=== PATIENT | male | born 1955 | race Caucasian/White ===

== ENCOUNTER 2019-05-26 10:51 | Inpatient (IN) | payer OTHER ==
--- NOTE | 2019-05-26 11:04 | ED ---
Psychiatric Complaint - HPI Summary HPI Summary: Patient is a 64 y/o M presenting to the ED via EMS on a 941 for a psychiatric complaint. Per EMS, patient has been noted to have decreasing mental status recently and hit his head on a cabinet on 05/26/19. Patient has a laceration on the left forehead and left side of the head. He is unable to state his symptoms and is confused. Any aggravating or alleviating factors are denied. PMHx is significant for schizophrenia. Patient states he self-medicates for his schizophrenia. Last tetanus vaccination is unknown. Medications reviewed. Allergies noted. LIMITED DUE TO ALTERED MENTAL STATUS. - History Of Current Complaint Time Seen by Provider: 05/26/19 10:57 Hx Obtained From: Patient, EMS Hx From Patient Unobtainable Due To: Altered Mental Status Onset/Duration: Sudden Onset, Still Present Timing: Constant Severity Initially: Moderate Severity Currently: Moderate Aggravating Factor(s): Nothing Alleviating Factor(s): Nothing Associated Signs And Symptoms: Positive: Confused Related History: Positive For: Prior Psychiatric Issues - Allergies/Home Medications Allergies/Adverse Reactions: Allergies Allergy/AdvReac Type Severity Reaction Status Date / Time No Known Allergies Allergy Verified 03/07/12 08:32 Home Medications: Home Medications Acetaminophen [Acetaminophen Extra Strength] 500 mg PO Q6H PRN 05/26/19 [ History Confirmed 05/26/19] Ketoconazole 2 % CREAM (NF) [Nizoral 2% CREAM (NF)] 1 applic TOPICAL BEDTIME [History Confirmed 05/26/19] Levothyroxine TAB* [Synthroid TAB*] 75 mcg PO DAILY 05/26/19 [History Confirmed 05/26/19] Perphenazine (NF) 8 mg PO QAM 05/26/19 [History Confirmed 05/26/19] Perphenazine (NF) 32 mg PO BEDTIME 05/26/19 [History Confirmed 05/26/19] Tamsulosin CAP* [Flomax CAP*] 0.4 mg PO DAILY 05/26/19 [History Confirmed ] PMH/Surg Hx/FS Hx/Imm Hx Previously Healthy: No - LIMITED DUE TO ALTERED MENTAL STATUS Sensory History: Denies: Hx Legally Blind, Hx Deafness Opthamlomology History: Denies: Hx Legally Blind EENT History: Denies: Hx Deafness Psychiatric History: Reports: Hx Schizophrenia - Surgical History Surgical History: None Surgery Procedure, Year, and Place: None - Immunization History Date of Tetanus Vaccine: 03/07/12 Infectious Disease History: No - Family History Known Family History: Negative: Seizure Disorder - Social History Occupation: Unemployed Lives: With Family Hx Substance Use: No Substance Use Type: Reports: None Hx Tobacco Use: No Smoking Status (MU): Never Smoked Tobacco Review of Systems - ROS Summary Review of Systems Summary: LIMITED DUE TO ALTERED MENTAL STATUS. Positive: Other - Positive laceration to the left forehead and left side of the head Neurological: Other - Positive confusion All Other Systems Reviewed And Are Negative: No Physical Exam - Summary Physical Exam Summary: Constitutional: Well-developed, Well-nourished, Alert. (-) Distressed Skin: Warm, Dry. 2 cm laceration to the left scalp. HENT: Normocephalic; Atraumatic Eyes: Conjunctiva normal Neck: Musculoskeletal ROM normal neck. (-) JVD, (-) Stridor, (-) Tracheal deviation Cardio: Rhythm regular, rate normal, Heart sounds normal; Intact distal pulses; Radial pulses are 2+ and symmetric. (-) Murmur Pulmonary/Chest wall: Effort normal. (-) Respiratory distress, (-) Wheezes, (-) Rales Abd: Soft, (-) tenderness, (-) Distension, (-) Guarding, (-) Rebound Musculoskeletal: (-) Edema Lymph: (-) Cervical adenopathy Neuro: Alert, Oriented x3 Psych: Mood and affect Normal LIMITED DUE TO ALTERED MENTAL STATUS. Triage Information Reviewed: Yes Vital Signs Reviewed: Yes - [place] Coma Scale Best Eye Response: 4 - Spontaneous Best Motor Response: 6 - Obeys Commands Best Verbal Response: 5 - Oriented Coma Scale Total: 15 Procedures - Sedation Patient Received Moderate/Deep Sedation with Procedure: No - Laceration/Wound Repair 1 Location: head - 2 cm laceration to the left scalp Description: Linear Length, Depth and Shape: 2 cm laceration to the left scalp Laceration/Wound Explored: clean Closure: Mariza #__ - 4 Diagnostics - Laboratory Result Diagrams: 05/26/19 11:14 05/26/19 15:30 Lab Statement: Any lab studies that have been ordered have been reviewed, and results considered in the medical decision making process. - CT Brain CT CT Interpretation Completed By: Radiologist Summary of CT Findings: Brain CT IMPRESSION: 1. No acute intracranial abnormality. 2. There are mariza along the vertex of the scalp. The subjacent calvarium is intact. Reviewed by Dr. Valladares. Course/Dx - Course Course Of Treatment: Patient is here with altered mental status per his usp. Patient is able answer some questions but does appear to sterile offat times with no acknowledgment of myself. Patient denies any auditory hallucinations. Patient had a small laceration on his head which was excessively repaired with mariza. Patient had blood performed which showed a sodium level of 116. Given patient's severe hyponatremia and altered mental status, patient was admitted to the ICU. - Differential Dx/Clinical Impression Provider Diagnosis: Schizophrenia, Hyponatremia, Scalp laceration, AMS (altered mental status) - Physician Notifications Discussed Care Of Patient With: Sagar Curiel - At 12:27, Dr. Sagar Curiel agrees to admit the patient to [facility] [place] [facility] [place] with a diagnosis of AMS, scalp laceration, hyponatremia, and schizophrenia. Time Discussed With Above Provider: 12:27 Instructed by Provider To: Admit As Inpatient - Critical Care Time Critical Care Time: 30-74 min - 35 minutes Discharge ED - Sign-Out/Discharge Documenting (check all that apply): Patient Departure - Admit - Discharge Plan Condition: Stable Disposition: ADMITTED TO [facility] - Billing Disposition and Condition Condition: STABLE Disposition: Admitted to [facility] - Attestation Statements Document Initiated by Dwayne: Yes Documenting Scribe: Keerthi Teixeira Provider For Whom Dwayne is Documenting (Include Credential): Giorgi Vo MD Scribe Attestation: Keerthi Gifford, scribed for Giorgi Vo MD on 05/26/19 at 2133. Scribe Documentation Reviewed: Yes Provider Attestation: The documentation as recorded by the Keerthi mendoza accurately reflects the service I personally performed and the decisions made by Giorgi pizarro MD Status of Scribe Document: Viewed
[2019-05-26 11:24] LABS: ABS Eosinophils 0.1 10^3/ul (0-0.6); ABS Lymphocytes 0.8 10^3/ul (1.0-4.8); ABS Monocytes 0.6 10^3/ul (0-0.8); ABS Neutrophils 3.1 10^3/ul (1.5-7.7); Eosinophil % 1.9 %; Hematocrit 33 % (42-52); Hemoglobin 11.4 g/dL (14.0-18.0); Lymphocyte % 16.9 %; Mean Corpuscular HGB Conc 35 g/dL (31-36); Mean Corpuscular Hemoglobin 32 pg (27-31); Mean Corpuscular Volume 91 fL (80-94); Mean Platelet Volume 6.5 fL (7.4-10.4); Platelet Count 193 10^3/uL (150-450); Red Blood Count 3.57 10^6 /uL (4.18-5.48); Red Cell Distribution Width 14 % (10-15); White Blood Count 4.7 10^3/uL (3.5-10.8)
[2019-05-26 11:39] LABS: ALT 34 U/L (7-52); AST 40 U/L (13-39); Albumin 4.1 g/dL (3.2-5.2); Alkaline Phosphatase 80 U/L (34-104); BUN/Creatinine Ratio 6.3 (8-20); Blood Urea Nitrogen 4 mg/dL (6-24); CO2 Carbon Dioxide 29 mmol/L (22-32); Calcium 8.7 mg/dL (8.6-10.3); Chloride 83 mmol/L (101-111); EGFR African American 152.8 (>60); EGFR Non-African American 126.3 (>60); Globulin 2.1 g/dL (2-4); Glucose 88 mg/dL (70-100); Potassium 4.6 mmol/L (3.5-5.0); Total Protein 6.2 g/dL (6.4-8.9)
[2019-05-26 11:51] LABS: Anion Gap 4 mmol/L (2-11); Sodium 116 mmol/L (135-145)
[2019-05-26 11:56] LABS: Urine Appearance Clear; Urine Bilirubin Negative (Negative); Urine Blood Negative (Negative); Urine Color Colorless; Urine Glucose Negative (Negative); Urine Ketones Negative (Negative); Urine Nitrite Negative (Negative); Urine Protein Negative (Negative); Urine Specific Gravity 1.001 (1.010-1.030); Urine Urobilinogen Negative (Negative)
[2019-05-26 12:04] LABS: Acetaminophen < 15 mcg/mL; Alcohol < 10 mg/dL (<10); Salicylate < 2.50 mg/dL (<30)
[2019-05-26 12:28] LABS: Urine Benzodiazepine Screen None Detected (None Detect); Urine Opiates Screen None Detected (None Detect)
[2019-05-26 13:07] LABS: Urine Sodium Concentration < 18 mmol/L
[2019-05-26] MEDS ORDERED: NS 0.9% 1000 ML** 1,000 ML IV SCH (13:15)
[2019-05-26 13:16] LABS: Urine Creatinine Concentration 6.98 mg/dL
[2019-05-26] MEDS ORDERED: Gabapentin CAP(*) 300 MG PO SCH (14:00)
[2019-05-26] MEDS ORDERED: Gabapentin CAP(*) 400 MG PO ONE (15:21)
[2019-05-26 16:01] LABS: BUN/Creatinine Ratio 6.2 (8-20); Calcium 9.4 mg/dL (8.6-10.3); EGFR African American 150.1 (>60); EGFR Non-African American 124.1 (>60); Potassium 4.1 mmol/L (3.5-5.0)
--- NOTE | 2019-05-26 17:51 | PN ---
Progress Note - Progress Note Date of Service: 05/26/19 Note: case discussed with ARCHITECTURAL WOOD MODEL MAKER Heather Ray; H&P reviewed. patient admitted after change in mental status; found to have low Na of 116. He is on perfenazine. Nursing discussion wiht patient and he states he drinks a large amount of water daily. he has diuresed 5Liter of urine on his own in just many hours while here. 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 given rapid rise in Na from 116 to 117, will stop NS. Start d5w 125cc/hr, check bmp q4h can allow to drink some water. want the sodium to correct back to lower 120s agree with plan CC time 40 min Sagar Curiel MD Analytical Technician
[2019-05-26] MEDS ORDERED: D5W 1000 ML BAG* 1,000 ML IV SCH (18:00)
--- NOTE | 2019-05-26 19:28 | HP ---
AMENDED REPORT NOW INCLUDES DESIGNATED COSIGNER HISTORY AND PHYSICAL: DATE OF ADMISSION: 05/26/19 PRIMARY CARE PHYSICIAN: Unknown. ATTENDING PHYSICIAN: Dr. Flakito Curiel.* (DICTATED BY ELIEL BASHIR NP) CHIEF COMPLAINT: Altered mental status, fall. HISTORY OF PRESENT ILLNESS: This is a 64-year-old male with a known medical history of schizophrenia who lives at a snf, who was brought to the emergency room after having altered mental status and falling and hitting his head on a cabinet. He denies loss of consciousness. He has a laceration on the left posterior scalp. He states he feels fine, denies any symptoms. Upon admission, sodium was found to be 116. He denies any recent changes in medications and he takes them all as prescribed. PAST MEDICAL HISTORY: Schizophrenia, urinary retention PAST SURGICAL HISTORY: Unknown. HOME MEDICATIONS: 1. Tamsulosin 0.4 mg p.o. daily. 2. Perphenazine 8 mg p.o. in the morning. 3. Perphenazine 32 mg p.o. at bedtime. 4. Nystatin every morning. 5. Multivitamin 1 tab p.o. daily. 6. Ativan 0.5 mg p.o. in the morning. 7. Ativan 2 mg p.o. at bedtime. 8. Lamotrigine 200 mg p.o. daily. 9. Levothyroxine 75 mcg daily. 10. Ketoconazole cream once daily at bedtime. 11. Gabapentin 800 mg p.o. t.i.d. 12. BuSpar 45 mg p.o. b.i.d. 13. Acetaminophen extra strength 500 mg p.o. q.6 hours p.r.n. ALLERGIES: No known allergies. FAMILY HISTORY: Unknown. SOCIAL HISTORY: The patient denies tobacco, alcohol, or drug use. REVIEW OF SYSTEMS: Constitutional: The patient states he feels well. Denies fevers, chills, fatigue. Neuro: Denies headache, vision changes, weakness, loss of sensation. Cardiovascular: Denies chest pain or shortness of breath. He does endorse bilateral lower extremity edema, which is his baseline. Respiratory: No shortness of breath, dyspnea or cough. GI: No nausea, vomiting, diarrhea, abdominal pain. : The patient does endorse problems voiding and has urinary frequency for which he takes Flomax. Musculoskeletal: The patient denies pain or new swelling. PHYSICAL EXAMINATION GENERAL: The patient is awake, alert, oriented x3. Lying on the stretcher, in no apparent distress. VITAL SIGNS: Heart rate 82-99, blood pressure 137-164, respiratory rate 16-21, temperature 98.6. HEENT: Normocephalic. The patient has a laceration on the left posterior scalp closed with matt. PERRL, 3 mm. NEURO: EOMs intact. Strength 5/5 all extremities, sensation intact to all extremities PULMONARY: Lungs are clear bilaterally, diminished in the bases. CARDIOVASCULAR: S1, S2. Regular rate and rhythm. No obvious murmur. ABDOMEN: Soft, nontender. Bowel sounds normal. MUSCULOSKELETAL: No clubbing, no cyanosis. Does have 2+ pitting edema bilateral lower extremities, which the patient states is his baseline. Edema goes up to mid calf. DIAGNOSTIC STUDIES/LAB DATA: CT brain completed and negative for bleed. Lab work significant for sodium of 116, chloride 83, BUN 4, creatinine of 0.64. AST 40. Urine was negative for opiates, barbiturates, amphetamines, benzodiazepines. IMPRESSION: This is a 64-year-old male with a known medical history of schizophrenia, currently on medications, presents to the emergency room after having altered mental status and falling and hitting his head on a cabinet. He was found to be hyponatremic with a sodium of 116 and slightly elevated blood pressure. ASSESSMENT AND PLAN: 1. Hyponatremia. Acute. Reviewed all medications and none are likely to cause hyponatremia. We will start normal saline at 75 cc per hour and obtain BMP q.4 hours. Goal will be to slowly increase it to the 120s. 2. Altered mental status. Appears to have resolved, unknown etiology at this time. The patient remains nonfocal neurologically. 3. Hypertension. Blood pressure elevated on presentation, but has been trending down. We will continue to monitor and keep systolic blood pressure less than 160. 4. Continue all home medications. 5. Bedside swallow evaluation and start regular diet if passes. 6. Out of bed with assistance. 7. Full code. The patient is admitted to the ICU for frequent BMPs, neuro checks, he is in fair condition. ELIEL BASHIR, BOTTLE DEALER [id number]/CPS #: [id number] Attending Note ---- Agree with above. after discussion with patient, noted he drinks large armound of free water. suspicion for psychogenic polydipsia as etiology of hyponatremia. NS infusion. started to make large amounts of urine and so d5w started later in afternoon. bmp q4h Sagar curiel md [facility]
[2019-05-26] MEDS ORDERED: chlorproMAZINE TAB* 10 MG PO ONE (21:12)
[2019-05-26] MEDS: Miconazole TOPICAL CREAM 2%* 30 GM TOPICAL SCH (21:50)
[2019-05-26] MEDS: Gabapentin CAP(*) 400 MG PO SCH (21:50)
[2019-05-26] MEDS: PERPHENAZINE 8 MG PO SCH (21:50)
[2019-05-26 23:08] LABS: BUN/Creatinine Ratio 7.5 (8-20); Calcium 8.9 mg/dL (8.6-10.3); EGFR Non-African American 119.8 (>60); Potassium 4.5 mmol/L (3.5-5.0)
[2019-05-26] MEDS ORDERED: Acetaminophen TAB* 325 MG PO PRN (23:11)
[2019-05-27] MEDS: D5W 1000 ML BAG* 1,000 ML IV SCH ×2 (00:51→06:15)
[2019-05-27 02:30] LABS: Albumin 4.1 g/dL (3.2-5.2); Albumin/Globulin Ratio 1.7 (1-3); BUN/Creatinine Ratio 7.6 (8-20); EGFR African American 147.5 (>60); EGFR Non-African American 121.9 (>60); Globulin 2.4 g/dL (2-4); Potassium 4.5 mmol/L (3.5-5.0); Total Bilirubin 0.4 mg/dL (0.2-1.0); Total Protein 6.5 g/dL (6.4-8.9)
[2019-05-27] MEDS: Levothyroxine TAB* 75 MCG TAB PO SCH (05:43)
[2019-05-27 06:17] LABS: ABS Eosinophils 0.1 10^3/ul (0-0.6); ABS Lymphocytes 0.9 10^3/ul (1.0-4.8); ABS Monocytes 0.5 10^3/ul (0-0.8); Eosinophil % 2.4 %; Hematocrit 33 % (42-52); Hemoglobin 11.7 g/dL (14.0-18.0); Lymphocyte % 25.6 %; Mean Corpuscular HGB Conc 35 g/dL (31-36); Mean Corpuscular Hemoglobin 32 pg (27-31); Mean Corpuscular Volume 92 fL (80-94); Mean Platelet Volume 6.5 fL (7.4-10.4); Nucleated Red Blood Cells % 0.1; Platelet Count 201 10^3/uL (150-450); Red Blood Count 3.63 10^6 /uL (4.18-5.48); Red Cell Distribution Width 14 % (10-15); White Blood Count 3.4 10^3/uL (3.5-10.8)
[2019-05-27 06:32] LABS: BUN/Creatinine Ratio 6.6 (8-20); Calcium 8.7 mg/dL (8.6-10.3); EGFR African American 161.5 (>60); EGFR Non-African American 133.5 (>60); Potassium 3.9 mmol/L (3.5-5.0)
[2019-05-27] MEDS: Gabapentin CAP(*) 400 MG PO SCH ×3 (08:57→20:09)
[2019-05-27] MEDS: lamoTRIgine TAB(*) 100 MG PO SCH (08:57)
[2019-05-27] MEDS: Multivitamins/Minerals TAB PO SCH (08:57)
[2019-05-27] MEDS: Tamsulosin CAP* 0.4 MG PO SCH (08:57)
--- NOTE | 2019-05-27 11:10 | PN ---
Progress Note - Progress Note Date of Service: 05/27/19
--- NOTE | 2019-05-27 11:30 | PN ---
<Heather Ray - Last Filed: 05/27/19 11:32> Date of Service: 05/27/19 Critical Care Services: Progress Note -- Critical Care 24 hour events/significant events: Na increased from 116 to 127 yesterday evening so IVF was transitioned to D5 @125. He started putting out large amounts of urine, indicating he had consumed quite a bit of PO fluids prior to arrival. He has been ambulating around room and voiding without issue. ROS: negative, patient denies any symptoms. He feels back to baseline. Tele: NSR, no ectopy Vitals: Vital Signs 05/26/19 05/26/19 05/26/19 12:03 12:06 12:33 Temperature Pulse Rate 79 79 79 Respiratory 6 12 10 Rate Blood Pressure 164/101 157/97 (mmHg) O2 Sat by Pulse 97 96 99 Oximetry 05/26/19 05/26/19 05/26/19 13:00 13:04 13:34 Temperature Pulse Rate 84 79 75 Respiratory 22 13 18 Rate Blood Pressure 148/93 164/89 (mmHg) O2 Sat by Pulse 98 97 96 Oximetry 05/26/19 05/26/19 05/26/19 14:00 14:04 14:34 Temperature Pulse Rate 80 77 75 Respiratory 16 15 16 Rate Blood Pressure 158/90 147/85 (mmHg) O2 Sat by Pulse 96 96 96 Oximetry 05/26/19 05/26/19 05/26/19 14:53 15:00 15:01 Temperature 98.5 F 98.6 F Pulse Rate 77 84 81 Respiratory 15 18 16 Rate Blood Pressure 158/90 164/91 (mmHg) O2 Sat by Pulse 96 98 97 Oximetry 05/26/19 05/26/19 05/26/19 15:16 15:30 16:00 Temperature Pulse Rate Respiratory 28 30 17 Rate Blood Pressure 165/83 164/87 (mmHg) O2 Sat by Pulse 98 96 98 Oximetry 05/26/19 05/26/19 05/26/19 16:15 16:31 16:45 Temperature Pulse Rate Respiratory 19 16 19 Rate Blood Pressure 160/88 164/89 148/89 (mmHg) O2 Sat by Pulse 97 96 97 Oximetry 05/26/19 05/26/19 05/26/19 17:00 17:15 17:30 Temperature Pulse Rate Respiratory 39 21 16 Rate Blood Pressure 155/96 137/87 185/103 (mmHg) O2 Sat by Pulse 96 98 Oximetry 05/26/19 05/26/19 05/26/19 17:45 18:00 19:00 Temperature Pulse Rate 75 Respiratory 23 14 11 Rate Blood Pressure 140/85 167/94 147/78 (mmHg) O2 Sat by Pulse 99 96 99 Oximetry 05/26/19 05/26/19 05/26/19 20:00 21:00 22:00 Temperature 99.4 F Pulse Rate 76 71 77 Respiratory 17 16 18 Rate Blood Pressure 138/84 142/81 (mmHg) O2 Sat by Pulse 96 95 96 Oximetry 05/26/19 05/26/19 05/26/19 22:01 22:56 23:00 Temperature Pulse Rate 71 59 Respiratory 10 20 16 Rate Blood Pressure 149/86 146/86 (mmHg) O2 Sat by Pulse 98 96 Oximetry 05/26/19 05/27/19 05/27/19 23:06 00:00 01:00 Temperature 99.9 F Pulse Rate 78 59 62 Respiratory 17 12 15 Rate Blood Pressure 138/81 150/79 (mmHg) O2 Sat by Pulse 96 96 96 Oximetry 05/27/19 05/27/19 05/27/19 02:00 02:13 03:00 Temperature Pulse Rate 70 62 62 Respiratory 21 16 8 Rate Blood Pressure 173/104 142/95 141/78 (mmHg) O2 Sat by Pulse 97 96 94 Oximetry 05/27/19 05/27/19 05/27/19 03:20 04:00 05:00 Temperature 98.6 F 98.6 F Pulse Rate 69 58 Respiratory 19 11 Rate Blood Pressure 135/79 132/80 (mmHg) O2 Sat by Pulse 92 94 Oximetry 05/27/19 05/27/19 05/27/19 06:00 06:25 07:00 Temperature Pulse Rate 65 67 Respiratory 15 15 20 Rate Blood Pressure 143/89 144/88 (mmHg) O2 Sat by Pulse 96 98 Oximetry 05/27/19 05/27/19 05/27/19 07:35 08:00 09:00 Temperature 99.3 F Pulse Rate 66 67 Respiratory 19 16 Rate Blood Pressure 150/92 166/81 (mmHg) O2 Sat by Pulse 97 97 Oximetry I/O 05/26/19 05/27/19 05/27/19 18:59 06:59 18:59 Intake Total 207 2675 540 Output Total 6890 2850 575 Balance -6683 -175 -35 Weight 139 lb 15.896 oz 139 lb 15.896 oz Intake: IV Fluids 207 NS 0.9% 207 IVPB 1905 D5W 1905 Oral 770 540 Output: Urine 6890 2850 575 Other: Estimated Void Large Date of Last Bowel 05/27/2019 Movement Estimated Stool Amount Large # Voids 1 1 O2/Vent: RA Infusions: D5W @ 175 cc/hr Medications: Acetaminophen (Tylenol Tab*) 650 mg PO Q6H PRN PRN Reason: MILD PAIN or TEMP > 100.4 Gabapentin (Neurontin Cap(*)) 800 mg PO TID [facility] Last Admin: 05/27/19 08:57 Dose: 800 mg Dextrose (D5w 1000 Ml Bag*) 1,000 mls @ 175 mls/hr IV PER RATE [facility] Last Admin: 05/27/19 06:15 Dose: 175 mls/hr Lamotrigine (Lamictal Tab(*)) 200 mg PO DAILY [facility] Last Admin: 05/27/19 08:57 Dose: 200 mg Levothyroxine Sodium (Synthroid Tab*) 75 mcg PO DAILY@0600 [facility] Last Admin: 05/27/19 05:43 Dose: 75 mcg Miconazole Nitrate (Monistat 2%*) 1 applic TOPICAL BEDTIME [facility]; Protocol Last Admin: 05/26/19 21:50 Dose: 1 applic Multivitamins/Minerals (Theragran/Minerals Tab*) 1 tab PO DAILY [facility] Last Admin: 05/27/19 08:57 Dose: 1 tab Nystatin (Nystatin Top Powder*) 1 applic TOPICAL QAM [facility] Perphenazine (Perphenazine (Nf)) 8 mg PO QAM [facility]; Protocol Perphenazine (Perphenazine (Nf)) 32 mg PO BEDTIME [facility]; Protocol Last Admin: 05/26/19 21:50 Dose: Not Given Tamsulosin HCl (Flomax Cap*) 0.4 mg PO DAILY [facility] Last Admin: 05/27/19 08:57 Dose: 0.4 mg Physical Exam: Constitutional: awake, alert, oriented x3, no distress, no diaphoresis Head: normocephalic, atraumatic Eyes: no pallor, no icterus ENT: moist mucous membranes Neck: soft, supple, no jvd, no stridor CVS: normal rate, regular, no murmur Chest/Resp: bilateral air entry, no rhales, no wheeze, no rhonchi, no acc muscle use Abdomen/GI: soft, nontender, nondistended, BS+ Ext/Msk: warm, pulses+, BLE pitting edema 2+ Skin: intact, warm Neuro: Moving all extremities, strength 5/5 all extremities, no gross focal deficit Psych: normal affect Labs: Laboratory Results - last 24 hr 05/26/19 05/26/19 05/26/19 11:12 11:12 11:12 WBC RBC Hgb Hct MCV MCH MCHC RDW Plt Count MPV Neut % (Auto) Lymph % (Auto) [place] % (Auto) Eos % (Auto) Baso % (Auto) Absolute Neuts (auto) Absolute Lymphs (auto) Absolute Monos (auto) Absolute Eos (auto) Absolute Basos (auto) Absolute Nucleated RBC Nucleated RBC % Sodium Potassium Chloride Carbon Dioxide Anion Gap BUN Creatinine Est GFR ( Amer) Est GFR (Non-Af Amer) BUN/Creatinine Ratio Glucose Calcium Total Bilirubin AST ALT Alkaline Phosphatase Total Protein Albumin Globulin Albumin/Globulin Ratio Urine Color Colorless Urine Appearance Clear Urine pH 7.0 Ur Specific [place] 1.001 L Urine Protein Negative Urine Ketones Negative Urine Blood Negative Urine Nitrate Negative Urine Bilirubin Negative Urine Urobilinogen Negative Ur Leukocyte Esterase Negative Ur Creatinine Concen 6.98 U Sodium Concentration < 18 Urine Glucose Negative Salicylates Urine Opiates Screen None detected Acetaminophen Ur Barbiturates Screen None detected Ur Phencyclidine Scrn None detected Ur Amphetamines Screen None detected U Benzodiazepines Scrn None detected Urine Cocaine Screen None detected U Cannabinoids Screen None detected Serum Alcohol 05/26/19 05/26/19 05/26/19 11:14 11:14 15:30 WBC 4.7 RBC 3.57 L Hgb 11.4 L Hct 33 L MCV 91 MCH 32 H MCHC 35 RDW 14 Plt Count 193 MPV 6.5 L Neut % (Auto) 67.1 Lymph % (Auto) 16.9 [place] % (Auto) 13.7 Eos % (Auto) 1.9 Baso % (Auto) 0.4 Absolute Neuts (auto) 3.1 Absolute Lymphs (auto) 0.8 L Absolute Monos (auto) 0.6 Absolute Eos (auto) 0.1 Absolute Basos (auto) 0.0 Absolute Nucleated RBC 0.0 Nucleated RBC % 0.0 Sodium 116 L* 127 L D Potassium 4.6 4.1 Chloride 83 L 91 L Carbon Dioxide 29 28 Anion Gap 4 8 BUN 4 L 4 L Creatinine 0.64 L 0.65 L Est GFR ( Amer) 152.8 150.1 Est GFR (Non-Af Amer) 126.3 124.1 BUN/Creatinine Ratio 6.3 L 6.2 L Glucose 88 85 Calcium 8.7 9.4 Total Bilirubin 0.50 AST 40 H ALT 34 Alkaline Phosphatase 80 Total Protein 6.2 L Albumin 4.1 Globulin 2.1 Albumin/Globulin Ratio 2.0 Urine Color Urine Appearance Urine pH Ur Specific [place] Urine Protein Urine Ketones Urine Blood Urine Nitrate Urine Bilirubin Urine Urobilinogen Ur Leukocyte Esterase Ur Creatinine Concen U Sodium Concentration Urine Glucose Salicylates < 2.50 Urine Opiates Screen Acetaminophen < 15 Ur Barbiturates Screen Ur Phencyclidine Scrn Ur Amphetamines Screen U Benzodiazepines Scrn Urine Cocaine Screen U Cannabinoids Screen Serum Alcohol < 10 05/26/19 05/27/19 05/27/19 22:40 02:05 06:12 WBC RBC Hgb Hct MCV MCH MCHC RDW Plt Count MPV Neut % (Auto) Lymph % (Auto) [place] % (Auto) Eos % (Auto) Baso % (Auto) Absolute Neuts (auto) Absolute Lymphs (auto) Absolute Monos (auto) Absolute Eos (auto) Absolute Basos (auto) Absolute Nucleated RBC Nucleated RBC % Sodium 129 L 128 L 128 L Potassium 4.5 4.5 3.9 Chloride 96 L 95 L 94 L Carbon Dioxide 28 26 29 Anion Gap 5 7 5 BUN 5 L 5 L 4 L Creatinine 0.67 0.66 L 0.61 L Est GFR ( Amer) 145.0 147.5 161.5 Est GFR (Non-Af Amer) 119.8 121.9 133.5 BUN/Creatinine Ratio 7.5 L 7.6 L 6.6 L Glucose 109 H 115 H 119 H Calcium 8.9 9.0 8.7 Total Bilirubin 0.40 AST 34 ALT 32 Alkaline Phosphatase 85 Total Protein 6.5 Albumin 4.1 Globulin 2.4 Albumin/Globulin Ratio 1.7 Urine Color Urine Appearance Urine pH Ur Specific [place] Urine Protein Urine Ketones Urine Blood Urine Nitrate Urine Bilirubin Urine Urobilinogen Ur Leukocyte Esterase Ur Creatinine Concen U Sodium Concentration Urine Glucose Salicylates Urine Opiates Screen Acetaminophen Ur Barbiturates Screen Ur Phencyclidine Scrn Ur Amphetamines Screen U Benzodiazepines Scrn Urine Cocaine Screen U Cannabinoids Screen Serum Alcohol 05/27/19 06:12 WBC 3.4 L RBC 3.63 L Hgb 11.7 L Hct 33 L MCV 92 MCH 32 H MCHC 35 RDW 14 Plt Count 201 MPV 6.5 L Neut % (Auto) 57.3 Lymph % (Auto) 25.6 [place] % (Auto) 14.2 Eos % (Auto) 2.4 Baso % (Auto) 0.5 Absolute Neuts (auto) 2.0 Absolute Lymphs (auto) 0.9 L Absolute Monos (auto) 0.5 Absolute Eos (auto) 0.1 Absolute Basos (auto) 0.0 Absolute Nucleated RBC 0.0 Nucleated RBC % 0.1 Sodium Potassium Chloride Carbon Dioxide Anion Gap BUN Creatinine Est GFR ( Amer) Est GFR (Non-Af Amer) BUN/Creatinine Ratio Glucose Calcium Total Bilirubin AST ALT Alkaline Phosphatase Total Protein Albumin Globulin Albumin/Globulin Ratio Urine Color Urine Appearance Urine pH Ur Specific [place] Urine Protein Urine Ketones Urine Blood Urine Nitrate Urine Bilirubin Urine Urobilinogen Ur Leukocyte Esterase Ur Creatinine Concen U Sodium Concentration Urine Glucose Salicylates Urine Opiates Screen Acetaminophen Ur Barbiturates Screen Ur Phencyclidine Scrn Ur Amphetamines Screen U Benzodiazepines Scrn Urine Cocaine Screen U Cannabinoids Screen Serum Alcohol Imaging: CT brain 05/26/19 was negative for abnormality Assessment: 64M with known medical history of schizophrenia and urinary retention, presents on 05/26 after experiencing AMS and a fall in where he hit his head on a cabinet. According to nursing notes, staff noticed at the half-way that he was disoriented and yelling at times. Upon admission to ED, patient was found to be hyponatremic with Na 116. Plan: Neuro- -Delirium prec; avoid BDZ - Continue all psych meds. None of his current medications are likely to cause hyponatremia. - CT brain negative for abnormality on 05/26 CVS- -SBP goal <160 - BP has been within goal Resp- -On room air -lung sounds are clear ID- - Afebrile - WBC WNL GI- -Nutrition: Regular diet -GI prophylaxis Renal- -strict I/O. Patient continues to void moderate amounts. - Is negative 8.7L for 24hrs. Most likely consumed a large amount of free water at home and is now diuresing. - Continue D5W @ 175 - Recheck BMP @ 11am. Will decreased IVF to 100cc/hr if Na is stable. - Na goal > 125 Heme- - Subq heparin for DVT prophylaxis Endo-Replace electrolytes as indicated, BG goal <200 Musculsk- pressure ulcer prophylaxis. OOB as tolerated Wounds- none Nutrition- Regular diet DVT prophylaxis: subq heparin GI prophylaxis: H2 gauri Disposition: Patient requires Critical Care/ICU for frequent sodium monitoring and strict I/Os Patient clinical status: Fair Code Status: Good Total Critical Care time is 30 minutes Vital Signs: Temp Pulse Resp BP SpO2 FiO2 99.3 F 67 26 166/81 97 05/27/19 07:35 05/27/19 09:00 05/27/19 09:00 05/27/19 09:00 05/27/19 09:00 Physical Exam: Gen: HEENT: Lungs: Cardiac: Abdomen: Extremities: Neuro: Fluid Balance (Past 24 Hours): I= O= Net Intake & Output 05/25/19 05/26/19 05/27/19 05/28/19 06:59 06:59 06:59 06:59 Intake Total 2882 540 Output Total 9740 575 Balance -6858 -35 Weight 139 lb 15.896 oz Intake: IV Fluids 207 NS 0.9% 207 IVPB 1905 D5W 1905 Oral 770 540 Output: Urine 9740 575 Other: Estimated Void Large Date of Last Bowel 05/27/2019 Movement Estimated Stool Amount Large # Voids 1 Labs: Laboratory Results - last 24 hr 05/26/19 05/26/19 05/26/19 11:12 11:12 11:12 WBC RBC Hgb Hct MCV MCH MCHC RDW Plt Count MPV Neut % (Auto) Lymph % (Auto) [place] % (Auto) Eos % (Auto) Baso % (Auto) Absolute Neuts (auto) Absolute Lymphs (auto) Absolute Monos (auto) Absolute Eos (auto) Absolute Basos (auto) Absolute Nucleated RBC Nucleated RBC % Sodium Potassium Chloride Carbon Dioxide Anion Gap BUN Creatinine Est GFR ( Amer) Est GFR (Non-Af Amer) BUN/Creatinine Ratio Glucose Calcium Total Bilirubin AST ALT Alkaline Phosphatase Total Protein Albumin Globulin Albumin/Globulin Ratio Urine Color Colorless Urine Appearance Clear Urine pH 7.0 Ur Specific [place] 1.001 L Urine Protein Negative Urine Ketones Negative Urine Blood Negative Urine Nitrate Negative Urine Bilirubin Negative Urine Urobilinogen Negative Ur Leukocyte Esterase Negative Ur Creatinine Concen 6.98 U Sodium Concentration < 18 Urine Glucose Negative Salicylates Urine Opiates Screen None detected Acetaminophen Ur Barbiturates Screen None detected Ur Phencyclidine Scrn None detected Ur Amphetamines Screen None detected U Benzodiazepines Scrn None detected Urine Cocaine Screen None detected U Cannabinoids Screen None detected Serum Alcohol 05/26/19 05/26/19 05/26/19 11:14 11:14 15:30 WBC 4.7 RBC 3.57 L Hgb 11.4 L Hct 33 L MCV 91 MCH 32 H MCHC 35 RDW 14 Plt Count 193 MPV 6.5 L Neut % (Auto) 67.1 Lymph % (Auto) 16.9 [place] % (Auto) 13.7 Eos % (Auto) 1.9 Baso % (Auto) 0.4 Absolute Neuts (auto) 3.1 Absolute Lymphs (auto) 0.8 L Absolute Monos (auto) 0.6 Absolute Eos (auto) 0.1 Absolute Basos (auto) 0.0 Absolute Nucleated RBC 0.0 Nucleated RBC % 0.0 Sodium 116 L* 127 L D Potassium 4.6 4.1 Chloride 83 L 91 L Carbon Dioxide 29 28 Anion Gap 4 8 BUN 4 L 4 L Creatinine 0.64 L 0.65 L Est GFR ( Amer) 152.8 150.1 Est GFR (Non-Af Amer) 126.3 124.1 BUN/Creatinine Ratio 6.3 L 6.2 L Glucose 88 85 Calcium 8.7 9.4 Total Bilirubin 0.50 AST 40 H ALT 34 Alkaline Phosphatase 80 Total Protein 6.2 L Albumin 4.1 Globulin 2.1 Albumin/Globulin Ratio 2.0 Urine Color Urine Appearance Urine pH Ur Specific [place] Urine Protein Urine Ketones Urine Blood Urine Nitrate Urine Bilirubin Urine Urobilinogen Ur Leukocyte Esterase Ur Creatinine Concen U Sodium Concentration Urine Glucose Salicylates < 2.50 Urine Opiates Screen Acetaminophen < 15 Ur Barbiturates Screen Ur Phencyclidine Scrn Ur Amphetamines Screen U Benzodiazepines Scrn Urine Cocaine Screen U Cannabinoids Screen Serum Alcohol < 10 05/26/19 05/27/19 05/27/19 22:40 02:05 06:12 WBC RBC Hgb Hct MCV MCH MCHC RDW Plt Count MPV Neut % (Auto) Lymph % (Auto) [place] % (Auto) Eos % (Auto) Baso % (Auto) Absolute Neuts (auto) Absolute Lymphs (auto) Absolute Monos (auto) Absolute Eos (auto) Absolute Basos (auto) Absolute Nucleated RBC Nucleated RBC % Sodium 129 L 128 L 128 L Potassium 4.5 4.5 3.9 Chloride 96 L 95 L 94 L Carbon Dioxide 28 26 29 Anion Gap 5 7 5 BUN 5 L 5 L 4 L Creatinine 0.67 0.66 L 0.61 L Est GFR ( Amer) 145.0 147.5 161.5 Est GFR (Non-Af Amer) 119.8 121.9 133.5 BUN/Creatinine Ratio 7.5 L 7.6 L 6.6 L Glucose 109 H 115 H 119 H Calcium 8.9 9.0 8.7 Total Bilirubin 0.40 AST 34 ALT 32 Alkaline Phosphatase 85 Total Protein 6.5 Albumin 4.1 Globulin 2.4 Albumin/Globulin Ratio 1.7 Urine Color Urine Appearance Urine pH Ur Specific [place] Urine Protein Urine Ketones Urine Blood Urine Nitrate Urine Bilirubin Urine Urobilinogen Ur Leukocyte Esterase Ur Creatinine Concen U Sodium Concentration Urine Glucose Salicylates Urine Opiates Screen Acetaminophen Ur Barbiturates Screen Ur Phencyclidine Scrn Ur Amphetamines Screen U Benzodiazepines Scrn Urine Cocaine Screen U Cannabinoids Screen Serum Alcohol 05/27/19 06:12 WBC 3.4 L RBC 3.63 L Hgb 11.7 L Hct 33 L MCV 92 MCH 32 H MCHC 35 RDW 14 Plt Count 201 MPV 6.5 L Neut % (Auto) 57.3 Lymph % (Auto) 25.6 [place] % (Auto) 14.2 Eos % (Auto) 2.4 Baso % (Auto) 0.5 Absolute Neuts (auto) 2.0 Absolute Lymphs (auto) 0.9 L Absolute Monos (auto) 0.5 Absolute Eos (auto) 0.1 Absolute Basos (auto) 0.0 Absolute Nucleated RBC 0.0 Nucleated RBC % 0.1 Sodium Potassium Chloride Carbon Dioxide Anion Gap BUN Creatinine Est GFR ( Amer) Est GFR (Non-Af Amer) BUN/Creatinine Ratio Glucose Calcium Total Bilirubin AST ALT Alkaline Phosphatase Total Protein Albumin Globulin Albumin/Globulin Ratio Urine Color Urine Appearance Urine pH Ur Specific [place] Urine Protein Urine Ketones Urine Blood Urine Nitrate Urine Bilirubin Urine Urobilinogen Ur Leukocyte Esterase Ur Creatinine Concen U Sodium Concentration Urine Glucose Salicylates Urine Opiates Screen Acetaminophen Ur Barbiturates Screen Ur Phencyclidine Scrn Ur Amphetamines Screen U Benzodiazepines Scrn Urine Cocaine Screen U Cannabinoids Screen Serum Alcohol Plan: Critical Care Time: <Michelle Curiel - Last Filed: 05/28/19 13:05> Vital Signs: Temp Pulse Resp BP SpO2 FiO2 98.2 F 57 18 128/72 97 05/28/19 08:00 05/28/19 08:00 05/28/19 08:21 05/28/19 08:00 05/28/19 08:00 Physical Exam: Gen: HEENT: Lungs: Cardiac: Abdomen: Extremities: Neuro: Fluid Balance (Past 24 Hours): I= O= Net Intake & Output 05/26/19 05/27/19 05/28/19 05/29/19 06:59 06:59 06:59 06:59 Intake Total 2882 2288 360 Output Total 9740 3715 Balance -8228 -7087 360 Weight 63.5 kg Intake: IV Fluids 207 131 D5W 131 NS 0.9% 207 IVPB 1905 1117 D5W 1905 1117 Oral 770 1040 360 Output: Urine 9740 3715 Other: Estimated Void Large Date of Last Bowel 05/27/2019 Movement # Bowel Movements 0 Estimated Stool Amount Large # Voids 1 Labs: Laboratory Results - last 24 hr 05/27/19 05/28/19 16:46 04:43 Sodium 129 L 132 L Potassium 4.4 4.1 Chloride 93 L 97 L Carbon Dioxide 30 28 Anion Gap 6 7 BUN 9 13 Creatinine 0.69 0.69 Est GFR ( Amer) 140.1 140.1 Est GFR (Non-Af Amer) 115.8 115.8 BUN/Creatinine Ratio 13.0 18.8 Glucose 101 H 93 Calcium 9.4 9.1 TSH 3.36 Plan: Critical Care Time: Attending Note Patient awake, alert. stable neuro exam Na stable in 128-129 range. D5w was decreased now. check repeat BMP/Na later today; urine output has decreased. correction of Na 12 in 24 hours, large due to his large diuresis from all the free water he takes in. d5w to be stopped later today if Na stable and allow himself to correct. will encourage to decrease free water intake. cont antipsychotic medications. michelle curiel md
[2019-05-27 11:49] LABS: BUN/Creatinine Ratio 6.1 (8-20); Calcium 9.3 mg/dL (8.6-10.3); EGFR African American 147.5 (>60); EGFR Non-African American 121.9 (>60); Potassium 4.2 mmol/L (3.5-5.0)
[2019-05-27] MEDS ORDERED: D5W 1000 ML BAG* 1,000 ML IV SCH (11:51)
[2019-05-27] MEDS: PERPHENAZINE 8 MG PO SCH ×2 (11:56→20:10)
[2019-05-27] MEDS: Nystatin TOP POWDER* 15 GM BTL TOPICAL SCH (11:58)
[2019-05-27 17:21] LABS: Calcium 9.4 mg/dL (8.6-10.3); EGFR African American 140.1 (>60); EGFR Non-African American 115.8 (>60); Potassium 4.4 mmol/L (3.5-5.0)
[2019-05-27] MEDS: Miconazole TOPICAL CREAM 2%* 30 GM TOPICAL SCH (20:09)
[2019-05-28] MEDS ORDERED: QUEtiapine TAB* 25 MG PO ONE (00:14)
[2019-05-28] MEDS: Levothyroxine TAB* 75 MCG TAB PO SCH (05:33)
[2019-05-28 05:51] LABS: BUN/Creatinine Ratio 18.8 (8-20); Calcium 9.1 mg/dL (8.6-10.3); EGFR African American 140.1 (>60); EGFR Non-African American 115.8 (>60); Potassium 4.1 mmol/L (3.5-5.0)
[2019-05-28] MEDS: Famotidine TAB* 20 MG PO SCH (08:20)
[2019-05-28] MEDS: Gabapentin CAP(*) 400 MG PO SCH ×3 (08:21→21:02)
[2019-05-28] MEDS: Tamsulosin CAP* 0.4 MG PO SCH (08:21)
[2019-05-28] MEDS: Multivitamins/Minerals TAB PO SCH (08:21)
[2019-05-28] MEDS: lamoTRIgine TAB(*) 100 MG PO SCH (08:22)
[2019-05-28] MEDS: Nystatin TOP POWDER* 15 GM BTL TOPICAL SCH (08:24)
[2019-05-28] MEDS: PERPHENAZINE 8 MG PO SCH ×2 (08:24→21:04)
--- NOTE | 2019-05-28 10:40 | PN ---
Subjective Date of Service: 05/28/19 Interval History: Pt was transferred to overnight. He currently states he is feeling well. He denies any SOB. No pain. Objective Active Medications: Acetaminophen (Tylenol Tab*) 650 mg PO Q6H PRN PRN Reason: MILD PAIN or TEMP > 100.4 Famotidine (Pepcid Tab*) 20 mg PO DAILY [facility] Last Admin: 05/28/19 08:20 Dose: 20 mg Gabapentin (Neurontin Cap(*)) 800 mg PO TID [facility] Last Admin: 05/28/19 08:21 Dose: 800 mg Lamotrigine (Lamictal Tab(*)) 200 mg PO DAILY [facility] Last Admin: 05/28/19 08:22 Dose: 200 mg Levothyroxine Sodium (Synthroid Tab*) 75 mcg PO DAILY@0600 [facility] Last Admin: 05/28/19 05:33 Dose: 75 mcg Miconazole Nitrate (Monistat 2%*) 1 applic TOPICAL BEDTIME [facility]; Protocol Last Admin: 05/27/19 20:09 Dose: 1 applic Multivitamins/Minerals (Theragran/Minerals Tab*) 1 tab PO DAILY [facility] Last Admin: 05/28/19 08:21 Dose: 1 tab Nystatin (Nystatin Top Powder*) 1 applic TOPICAL QAM [facility] Last Admin: 05/28/19 08:24 Dose: Not Given Perphenazine (Perphenazine (Nf)) 8 mg PO QAM [facility]; Protocol Last Admin: 05/28/19 08:24 Dose: Not Given Perphenazine (Perphenazine (Nf)) 32 mg PO BEDTIME [facility]; Protocol Last Admin: 05/27/19 20:10 Dose: Not Given Tamsulosin HCl (Flomax Cap*) 0.4 mg PO DAILY [facility] Last Admin: 05/28/19 08:21 Dose: 0.4 mg Vital Signs - 8 hr 05/28/19 05/28/19 05/28/19 02:45 08:00 08:21 Temperature 98.5 F 98.2 F Pulse Rate 64 57 Respiratory 14 18 18 Rate Blood Pressure 137/80 128/72 (mmHg) O2 Sat by Pulse 96 97 Oximetry Oxygen Devices in Use Now: None Appearance: Middle aged male standing in his room, NAD Eyes: No Scleral Icterus Ears/Nose/Mouth/Throat: Mucous Membranes Moist Cardiovascular: NL Sounds; No Murmurs; No JVD, RRR, No Edema Abdominal: NL Sounds; No Tenderness; No Distention Extremities: No Clubbing, Cyanosis Skin: No Nodules or Sclerosis Neurological: Alert and Oriented x 3 Result Diagrams: 05/27/19 06:12 05/28/19 04:43 Microbiology and Other Data: Microbiology 05/26/19 15:30 Nasal Screen MRSA (PCR) - Final Nasal Mrsa Not Detected Assess/Plan/Problems-Billing Mr Bush is a 64 yo M who has a h/o schizophrenia who presented to the ER with altered mental status and fall and was found to be 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 - Patient Problems (1) Psychogenic polydipsia Current Visit: Yes Status: Acute Code(s): R63.1 - POLYDIPSIA; F54 - PSYCH & [employer] W DISORD OR DIS CLASSD [id number] SNOMED Code(s): 24788424 Comment: Pt with likely psychogenic polydipsia. He was drinking a tremendous amount of water prior to admission. He needs to be limited to 64oz free water/ day. (2) Hyponatremia Current Visit: Yes Status: Acute Code(s): E87.1 - HYPO-OSMOLALITY AND HYPONATREMIA SNOMED Code(s): 12578526 Comment: Resolved with limiting patient's access to as much water as he wants. He did correct rapidly initially but now the Na level is stable. He is ready for d/c home when [facility] can take him back. (3) Schizophrenia Current Visit: Yes Status: Acute Code(s): F20.9 - SCHIZOPHRENIA, UNSPECIFIED SNOMED Code(s): 56789778 Comment: Continue seroquel. Pt has not had his perphenazine since admission. (4) Hypothyroidism Current Visit: Yes Status: Acute Code(s): E03.9 - HYPOTHYROIDISM, UNSPECIFIED SNOMED Code(s): 00270948 Comment: Check TSH. Continue synthroid at current dose. (5) DVT prophylaxis Current Visit: Yes Status: Acute Code(s): Z29.9 - ENCOUNTER FOR PROPHYLACTIC MEASURES, UNSPECIFIED SNOMED Code(s): 968579089 Comment: start lovenox if pt needs to stay the night (6) Full code status Current Visit: Yes Status: Acute Code(s): Z78.9 - OTHER SPECIFIED HEALTH STATUS SNOMED Code(s): 024143462
[2019-05-28 11:39] LABS: TSH (Thyroid Stimulating Horm) 3.36 mcIU/mL (0.34-5.60)
[2019-05-28] MEDS: Miconazole TOPICAL CREAM 2%* 30 GM TOPICAL SCH (21:03)
[2019-05-28] MEDS: QUEtiapine TAB* 25 MG PO PRN (21:04)
[2019-05-29] MEDS: Levothyroxine TAB* 75 MCG TAB PO SCH (05:20)
[2019-05-29 05:58] LABS: BUN/Creatinine Ratio 17.6 (8-20); Calcium 8.7 mg/dL (8.6-10.3); EGFR African American 142.5 (>60); EGFR Non-African American 117.8 (>60); Potassium 4.4 mmol/L (3.5-5.0)
[2019-05-29] MEDS: lamoTRIgine TAB(*) 100 MG PO SCH (07:51)
[2019-05-29] MEDS: Nystatin TOP POWDER* 15 GM BTL TOPICAL SCH (07:52)
[2019-05-29] MEDS: Gabapentin CAP(*) 400 MG PO SCH ×3 (07:52→20:54)
[2019-05-29] MEDS: Multivitamins/Minerals TAB PO SCH (07:52)
[2019-05-29] MEDS: PERPHENAZINE 8 MG PO SCH ×2 (07:52→20:55)
[2019-05-29] MEDS: Famotidine TAB* 20 MG PO SCH (07:52)
[2019-05-29] MEDS: Tamsulosin CAP* 0.4 MG PO SCH (07:52)
--- NOTE | 2019-05-29 16:51 | PN ---
Subjective Date of Service: 05/29/19 Interval History: No overnight events. Librado is concerned he is not getting his medications timed correctly. I will correct the timing. Otherwise he has no complaints. Objective Active Medications: Acetaminophen (Tylenol Tab*) 650 mg PO Q6H PRN PRN Reason: MILD PAIN or TEMP > 100.4 Famotidine (Pepcid Tab*) 20 mg PO DAILY [facility] Last Admin: 05/29/19 07:52 Dose: 20 mg Gabapentin (Neurontin Cap(*)) 800 mg PO TID [facility] Last Admin: 05/29/19 15:43 Dose: 800 mg Lamotrigine (Lamictal Tab(*)) 200 mg PO DAILY [facility] Last Admin: 05/29/19 07:51 Dose: 200 mg Levothyroxine Sodium (Synthroid Tab*) 75 mcg PO DAILY@0600 [facility] Last Admin: 05/29/19 05:20 Dose: 75 mcg Miconazole Nitrate (Monistat 2%*) 1 applic TOPICAL BEDTIME [facility]; Protocol Last Admin: 05/28/19 21:03 Dose: 1 applic Multivitamins/Minerals (Theragran/Minerals Tab*) 1 tab PO DAILY [facility] Last Admin: 05/29/19 07:52 Dose: 1 tab Nystatin (Nystatin Top Powder*) 1 applic TOPICAL QAM [facility] Last Admin: 05/29/19 07:52 Dose: Not Given Perphenazine (Perphenazine (Nf)) 8 mg PO QAM [facility]; Protocol Last Admin: 05/29/19 07:52 Dose: Not Given Perphenazine (Perphenazine (Nf)) 32 mg PO BEDTIME [facility]; Protocol Last Admin: 05/28/19 21:04 Dose: Not Given Quetiapine Fumarate (Seroquel Tab*) 50 mg PO BEDTIME PRN PRN Reason: Sleep Last Admin: 05/28/19 21:04 Dose: 50 mg Tamsulosin HCl (Flomax Cap*) 0.4 mg PO DAILY [facility] Last Admin: 05/29/19 07:52 Dose: 0.4 mg Vital Signs - 8 hr 05/29/19 05/29/19 05/29/19 10:13 11:30 15:43 Temperature 99.2 F Pulse Rate 66 Respiratory 20 21 18 Rate Blood Pressure 127/71 (mmHg) O2 Sat by Pulse 95 Oximetry Oxygen Devices in Use Now: None Appearance: alert, well appearing Eyes: No Scleral Icterus Ears/Nose/Mouth/Throat: NL Teeth, Lips, Gums Neck: NL Appearance and Movements; NL JVP Respiratory: Symmetrical Chest Expansion and Respiratory Effort, Clear to Auscultation Cardiovascular: NL Sounds; No Murmurs; No JVD, RRR Abdominal: NL Sounds; No Tenderness; No Distention Lymphatic: No Cervical Adenopathy Extremities: No Edema, - - varicose veins both legs Skin: No Rash or Ulcers Result Diagrams: 05/27/19 06:12 05/29/19 05:21 Microbiology and Other Data: Microbiology 05/26/19 15:30 Nasal Screen MRSA (PCR) - Final Nasal Mrsa Not Detected Assess/Plan/Problems-Billing Mr Bush is a 64 yo M who has a h/o schizophrenia who presented to the ER with altered mental status and fall and was found to be 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 - Patient Problems (1) Hyponatremia Current Visit: Yes Status: Acute Code(s): E87.1 - HYPO-OSMOLALITY AND HYPONATREMIA SNOMED Code(s): 84236288 Comment: Resolved with limiting patient's access to wtaer. He did correct rapidly initially but now the Na level is stable. Certainly perphenazine can cause hyponatremia, but his sodium has resolved despite the continuation of perphenazine. Although he cannot quantify how much water he was drinking, he says "a lot" and admits it was as much as he could get. Sodium has resolved with only water restriction and no other intervention and with continuation of his antipsychotics so I agree this is most likely (2) Hypothyroidism Current Visit: Yes Status: Acute Code(s): E03.9 - HYPOTHYROIDISM, UNSPECIFIED SNOMED Code(s): 12839750 Comment: TSH normal (3) Psychogenic polydipsia Current Visit: Yes Status: Acute Code(s): R63.1 - POLYDIPSIA; F54 - PS[facility] [facility] W DISORD OR DIS CLASSD [id number] SNOMED Code(s): 20871633 Comment: Pt with likely psychogenic polydipsia. He was drinking a tremendous amount of water prior to admission. He needs to be limited to 64oz free water/ day. (4) Schizophrenia Current Visit: Yes Status: Acute Code(s): F20.9 - SCHIZOPHRENIA, UNSPECIFIED SNOMED Code(s): 32131774 Comment: Continue seroquel and perphenazine Status and Disposition: ready for discharge but [place] did not return Social work's calls today
[2019-05-29] MEDS: QUEtiapine TAB* 25 MG PO PRN (20:54)
[2019-05-29] MEDS: Miconazole TOPICAL CREAM 2%* 30 GM TOPICAL SCH (20:55)
[2019-05-29] MEDS ORDERED: busPIRone TAB* 10 MG PO SCH (21:00)
[2019-05-30] MEDS: Levothyroxine TAB* 75 MCG TAB PO SCH (06:00)
[2019-05-30] MEDS: Famotidine TAB* 20 MG PO SCH (08:19)
[2019-05-30] MEDS: Multivitamins/Minerals TAB PO SCH (08:19)
[2019-05-30] MEDS: lamoTRIgine TAB(*) 100 MG PO SCH (08:19)
[2019-05-30] MEDS: Tamsulosin CAP* 0.4 MG PO SCH (08:19)
[2019-05-30] MEDS: Gabapentin CAP(*) 400 MG PO SCH (08:19)
[2019-05-30] MEDS: PERPHENAZINE 8 MG PO SCH (08:20)
[2019-05-30] MEDS: Nystatin TOP POWDER* 15 GM BTL TOPICAL SCH (08:20)
[2019-05-30] MEDS ORDERED: busPIRone TAB* 15 MG PO SCH (09:00)
--- NOTE | 2019-05-30 10:44 | CONSULT ---
Identification - Patient Identification Reason for Psychiatric Consultation: Incapacitating Symptoms -: Patient is a 64 year old, M admitted on 05/26/19. - MHU Identification Employment Status: Disabled Hx Psychiatric Hospitalization: Yes History - Objective HPI: Psychiatry is asked to see Mr. Bush due to psychogenic polydipsia resulting in dangerously low sodium levels, falls and hospitalization in the ICU for electrolyte correction. He is apparently medically cleared for discharge, however, his housing agency, [facility], asked for psychiatric evaluation as he lives in a room that has free access to water and he cannot be continuously monitored to prevent further polydipsia. Upon entering his room he is calmly laying in bed and is cooperative, albeit oddly related. He seems to anticipate my line of questioning by stating at the beginning "I know, they told me already...only 4 cups of water a day." He admits to drinking "a lot" of water prior to admission, explaining that he has always tried to avoid dehydration. He demonstrates an understanding of the problematic nature of this behavior saying "I could end up back in the hospital or have a seizure." He reports that he receives treatment for his mental illness at [facility] under the care of psychiatrist Siddharth Mcfadden. His next appointment there is in early June. He denies delusions, hallucinations or SI/HI. Exam Appearance: Thin Framed Hygiene: Normal Grooming: Well Kept Psychomotor Activities: Normal Exhibits Abnormal Movement: Yes Attitude and Relatedness: Cooperative Eye Contact: Good - Speech Quality: Unpressured Latencies: Normal Quantity: Terse Patient's Decription of Mood: "Okay" Observed Affect: Unvariable Affect Consistent with: Euthymia Patient's Thought Process: Coherent Thought Content: No Passive Wish, No Suicidal Planning, No Homicidal Ideation, No Paranoid Ideation Experiencing Hallucinations: No, Sensorium is Clear Type of Hallucinations: Visual: No, Auditory: No, Command: No Level of Consciousness: Alert Orientation: Yes Intact, Yes Orientated to Time, Yes Orientated to Place, Yes Orientated to Person Impulse Control: Intact Insight and Judgement: Fair Impression - Impression Clinical Impression: 64 y.o. single, white male with a history of schizophrenia admitted to the Medicine service on 05/26/19 due to falls related to hyponatremia. His sodium has been corrected and the etiology has been determined to be that of psychogenic polydipsia. The patient must limit his fluid intake to 64oz per day and he expresses an understanding of this. Inpatient DSM-V Dx: F20.9 Merits Inpatient Hospitalization: Yes BSU: Problem List - Patient Problems (1) Schizophrenia Current Visit: Yes Status: Acute Priority: Low Code(s): F20.9 - SCHIZOPHRENIA, UNSPECIFIED SNOMED Code(s): 94195189 Comment: Continue seroquel and perphenazine Plan - Treatment Plan Treatment Plan: Continue outpatient meds. The patient is psychiatrically cleared for discharge and will follow up with Dr. Siddharth Mcfadden at [facility]. He expresses clear understanding that he must limit fluid intake to 4 cups of water per day. Psychiatry is signing off but can be reconsulted in the event of any significant changes in the patient's presentation. Continued Medication Management: Continue Outpt Medication Medications: Current Medications Acetaminophen (Tylenol Tab*) 650 mg PO Q6H PRN PRN Reason: MILD PAIN or TEMP > 100.4 Buspirone HCl (Buspar Tab *) 45 mg PO BID [facility] Last Admin: 05/30/19 09:33 Dose: 45 mg Famotidine (Pepcid Tab*) 20 mg PO DAILY [facility] Last Admin: 05/30/19 08:19 Dose: 20 mg Gabapentin (Neurontin Cap(*)) 800 mg PO TID [facility] Last Admin: 05/30/19 08:19 Dose: 800 mg Lamotrigine (Lamictal Tab(*)) 200 mg PO DAILY [facility] Last Admin: 05/30/19 08:19 Dose: 200 mg Levothyroxine Sodium (Synthroid Tab*) 75 mcg PO DAILY@0600 [facility] Last Admin: 05/30/19 06:00 Dose: 75 mcg Miconazole Nitrate (Monistat 2%*) 1 applic TOPICAL BEDTIME [facility]; Protocol Last Admin: 05/29/19 20:55 Dose: 1 applic Multivitamins/Minerals (Theragran/Minerals Tab*) 1 tab PO DAILY [facility] Last Admin: 05/30/19 08:19 Dose: 1 tab Nystatin (Nystatin Top Powder*) 1 applic TOPICAL QAM [facility] Last Admin: 05/30/19 08:20 Dose: 1 applic Perphenazine (Trilafon Tab*) 8 mg PO QAM [facility]; Protocol Perphenazine (Trilafon Tab*) 32 mg PO BEDTIME [facility]; Protocol Quetiapine Fumarate (Seroquel Tab*) 50 mg PO BEDTIME PRN PRN Reason: Sleep Last Admin: 05/29/19 20:54 Dose: 50 mg Tamsulosin HCl (Flomax Cap*) 0.4 mg PO DAILY [facility] Last Admin: 05/30/19 08:19 Dose: 0.4 mg - Discharge Plan Discharge Plan: Outpatient Follow Up Outpatient Program: [facility]
[2019-05-30] MEDS ORDERED: Perphenazine TAB* 2 MG PO SCH ×2 (11:00→21:00)
[2019-05-30 13:02] VITALS: BP 126/64
--- NOTE | 2019-05-30 22:19 | DS ---
CC: Dr. Mcfadden * DISCHARGE SUMMARY: DATE OF ADMISSION: 05/26/19 DATE OF DISCHARGE: 05/30/19 PRINCIPAL DISCHARGE DIAGNOSES: 1. Hyponatremia. 2. Psychogenic polydipsia. 3. Fall. SECONDARY DISCHARGE DIAGNOSIS: 1. Schizophrenia. MEDICATIONS AT DISCHARGE: 1. Lorazepam 2 mg q.h.s. 2. Multivitamin daily. 3. Lamotrigine 200 mg daily. 4. Nystatin topically daily. 5. Lorazepam 0.5 mg daily. 6. Gabapentin 800 mg t.i.d. 7. Buspirone 45 mg b.i.d. 8. Tamsulosin 0.4 mg daily. 9. Perphenazine 8 mg daily. 10. Perphenazine 32 mg q.h.s. 11. Synthroid 75 mcg daily. 12. Tylenol 500 mg q.6 hours p.r.n. pain. PHYSICAL EXAMINATION: At the time of discharge, temperature 98.8, heart rate 64, respiratory rate 14, pulse ox 95% on room air, blood pressure 126/64. General: Alert, well-appearing man, elderly man, doing stretches in his room. HEENT: Pupils are equal, round, reactive to light. Oral mucosa is moist. Neck : No JVP, no adenopathy. Chest: Regular rate and rhythm with no murmurs. His lungs are clear bilaterally. Abdomen: Soft, nontender, nondistended. Extremities: No edema, rashes, or ulcers. He has significant varicosities on his lower extremities, right greater than left. Psychiatric: He is calm, appropriate, and expresses clear understanding of our conversation. HOSPITAL COURSE BY PROBLEM: 1. Hyponatremia. Mr. Bush was admitted after confusion and a fall, and at the time of admission, he was found to have serum sodium of 116. He was admitted to the ICU for sodium correction, which was done with normal saline and water restriction. Mr. Bush admitted to drinking large amounts of water and while he could not quantify it, he said he drank "as much water as I could get the hands on." This history was supported by staff members at [place], who said that he has his own apartment and does not socialize as much and has free access to as much water as he pleases. He also had large volume auto-diuresis while in the ICU further supporting the suspicion of psychogenic polydipsia. It should be noted that he is also on perphenazine, which can cause hyponatremia and this was held during this admission due to being not on formulary. However, since his sodium corrected so quickly with water restriction as well as large volume auto-diuresis and his history of consuming large volumes of water, his history was more likely to be consistent with psychogenic polydipsia. Dr. Westbrook also weighed in and agreed that it was less likely to be caused by perphenazine, so this is being continued at the time of discharge. 2. Fall. This was likely related to the hyponatremia. He was able to ambulate easily around his room and in the hallways with the nurses and they expressed no concern about his safety to return back to [place]. 3. Schizophrenia. He was continued on his home medication save for perphenazine since we did not have it on formulary, he is being discharged on the same medication without any changes. 4. Hypothyroidism. His TSH was within normal limits on this admission. DISPOSITION: Mr. Bush is being discharged back to [place]. He expresses good understanding of the need for water restriction and agrees to comply with this and understands the consequences of not doing so. We discussed the case with [facility] to see whether they could turn off his personal thing, so that he would have monitored water intake, but they do not have the ability to do so. Along with Psychiatry in [place], we decided to allow him to return back to [place] to see if he is able to comply with this recommendation. He will follow up with his primary psychiatrist, Dr. Mcfadden and should he express any other neurologic symptoms or complaints, I would recommend checking or repeat basic metabolic panel. CONDITION AT THE TIME OF DISCHARGE: Stable. [id number]/[facility] [place] [id number] [facility]ENTERCarlene
== END 2019-05-30 13:30 | DRG 425 ==
LOC: ED 10:51 → ICU 12:57 → MED 05-27 18:29
PROVIDERS: ADMIT Internal Medicine Critical Care Medicine; ATTEND Internal Medicine
PROC: 0HQ0XZZ Repair Scalp Skin, External Approach (ICD-10-PCS; principal; 2019-05-26)
DX: E87.1 Hypo-osmolality and hyponatremia (principal); R63.1 Polydipsia; F20.9 Schizophrenia, unspecified; R29.6 Repeated falls; F54 Psychological and behavioral factors associated with disorders or diseases classified elsewhere; E03.9 Hypothyroidism, unspecified; I10 Essential (primary) hypertension; S01.01XA Laceration without foreign body of scalp, initial encounter; W19.XXXA Unspecified fall, initial encounter; Y92.9 Unspecified place or not applicable; Z79.899 Other long term (current) drug therapy; Z79.890 Hormone replacement therapy
CPT/HCPCS: 36415; 70450; 80048; 80053; 80307; 80320; 80329; 81003; 82570; 84300; 84443; 85025; 87641; 99284; A9270-GY; G0480

== ENCOUNTER 2020-03-21 01:32 | Observation (INO) ==
[2020-03-21] MEDS ORDERED: NS 0.9% 1000 ml BAG 1,000 ML IV ONE (01:50)
[2020-03-21 03:55] LABS: ABS Lymphocytes 0.3 10^3/ul (1.0-4.8); ABS Monocytes 0.5 10^3/ul (0-0.8); ABS Neutrophils 7.7 10^3/ul (1.5-7.7); Hematocrit 37 % (42-52); Hemoglobin 12.7 g/dL (14.0-18.0); Lymphocyte % 3.5 %; Mean Corpuscular HGB Conc 34 g/dL (31-36); Mean Corpuscular Hemoglobin 31 pg (27-31); Mean Corpuscular Volume 91 fL (80-94); Mean Platelet Volume 7.9 fL (7.4-10.4); Platelet Count 203 10^3/uL (150-450); Red Blood Count 4.07 10^6 /uL (4.18-5.48); Red Cell Distribution Width 14 % (10-15); White Blood Count 8.6 10^3/uL (3.5-10.8)
[2020-03-21 04:09] LABS: ALT 14 U/L (7-52); Albumin 3.7 g/dL (3.2-5.2); Albumin/Globulin Ratio 1.7 (1-3); Alkaline Phosphatase 68 U/L (34-104); BUN/Creatinine Ratio 19.6 (8-20); Blood Urea Nitrogen 11 mg/dL (6-24); CO2 Carbon Dioxide 21 mmol/L (22-32); Chloride 105 mmol/L (101-111); Creatine Kinase 193 U/L (10-223); EGFR African American 178.3 (>60); EGFR Non-African American 147.4 (>60); Globulin 2.2 g/dL (2-4); Glucose 95 mg/dL (70-100); Sodium 131 mmol/L (135-145); Total Protein 5.9 g/dL (6.4-8.9)
[2020-03-21 04:10] LABS: Alcohol, S < 10 mg/dL (<10)
[2020-03-21 04:25] LABS: TSH Ultra Thyroid Stim Horm 3.01 mcIU/mL (0.34-5.60)
[2020-03-21 04:49] LABS: Anion Gap 5 mmol/L (2-11)
[2020-03-21 05:22] LABS: Magnesium 1.8 mg/dL (1.9-2.7); Potassium Redraw 4.2 mmol/L (3.5-5.0)
[2020-03-21 07:17] LABS: Urine Appearance Cloudy; Urine Bilirubin Negative (Negative); Urine Blood Negative (Negative); Urine Color Yellow; Urine Glucose Negative (Negative); Urine Ketones 1+ (Negative); Urine Nitrite Negative (Negative); Urine Protein Negative (Negative); Urine Urobilinogen Negative (Negative)
[2020-03-21] MEDS ORDERED: PERPHENAZINE 8 MG PO SCH (09:00)
[2020-03-21] MEDS ORDERED: Magnesium Sulfate 2 gm BAG 2 GM/50 ML BAG IVPB ONE (10:24)
[2020-03-22 06:21] LABS: ABS Eosinophils 0.1 10^3/ul (0-0.6); ABS Lymphocytes 0.9 10^3/ul (1.0-4.8); ABS Monocytes 0.7 10^3/ul (0-0.8); ABS Neutrophils 4.6 10^3/ul (1.5-7.7); Eosinophil % 1.5 %; Hematocrit 34 % (42-52); Hemoglobin 11.6 g/dL (14.0-18.0); Lymphocyte % 13.8 %; Mean Corpuscular HGB Conc 34 g/dL (31-36); Mean Corpuscular Hemoglobin 31 pg (27-31); Mean Corpuscular Volume 92 fL (80-94); Mean Platelet Volume 7.5 fL (7.4-10.4); Platelet Count 176 10^3/uL (150-450); Red Blood Count 3.69 10^6 /uL (4.18-5.48); Red Cell Distribution Width 14 % (10-15); White Blood Count 6.3 10^3/uL (3.5-10.8)
[2020-03-22 07:00] LABS: Calcium 8.5 mg/dL (8.6-10.3); EGFR African American 155.6 (>60); EGFR Non-African American 128.6 (>60); Potassium 3.8 mmol/L (3.5-5.0)
[2020-03-22 08:39] LABS: Magnesium 1.8 mg/dL (1.9-2.7)
[2020-03-22 08:46] VITALS: BP 148/83
[2020-03-22] MEDS ORDERED: PERPHENAZINE 8 MG PO SCH ×2 (09:00→21:00)
[2020-03-22] MEDS ORDERED: Influenza VAC *QUAD* 2020-21* 0.5 ML SYRINGE IM ONE (09:00)
[2020-03-22] MEDS ORDERED: Pneumococcal Vac 23-Polyvalent IM ONE (09:00)
== END 2020-03-22 10:50 | disposition home or self-care (01) ==
LOC: ED 01:32 → MEDTELE 01:32
PROVIDERS: ADMIT Student in an Organized Health Care Education/Training Program; ATTEND Internal Medicine

== ENCOUNTER 2021-08-08 16:31 | Inpatient (IN) ==
[2021-08-08 17:18] LABS: ABS Eosinophils 0.1 10^3/ul (0-0.6); ABS Lymphocytes 0.7 10^3/ul (1.0-4.8); ABS Monocytes 0.4 10^3/ul (0-0.8); ABS Neutrophils 2.7 10^3/ul (1.5-7.7); Eosinophil % 2.8 %; Hematocrit 36 % (42-52); Hemoglobin 12.2 g/dL (14.0-18.0); Lymphocyte % 19.2 %; Mean Corpuscular HGB Conc 34 g/dL (31-36); Mean Corpuscular Hemoglobin 31 pg (27-31); Mean Corpuscular Volume 91 fL (80-94); Platelet Count 207 10^3/uL (150-450); Red Blood Count 3.96 10^6 /uL (4.18-5.48); Red Cell Distribution Width 14 % (10-15); White Blood Count 3.9 10^3/uL (3.5-10.8)
[2021-08-08 17:25] LABS: Activated Partial Thrombo Time 34.7 seconds (26.0-38.0); INR 1.11 (0.86-1.15)
[2021-08-08 17:40] LABS: High Sens Troponin Baseline 7 pg/mL (<20)
[2021-08-08] MEDS: Lactated Ringers 1000 ml BAG 1,000 ML IV ONE ×2 (17:42→23:37)
[2021-08-08 17:54] LABS: ALT 28 U/L (7-52); AST 36 U/L (13-39); Albumin 4.7 g/dL (3.2-5.2); Albumin/Globulin Ratio 1.8 (1-3); Alkaline Phosphatase 101 U/L (35-149); Anion Gap 7 mmol/L (2-11); Blood Urea Nitrogen 5 mg/dL (6-24); C Reactive Protein < 1.00 mg/L (<8.01); CO2 Carbon Dioxide 31 mmol/L (22-32); Calcium 9.3 mg/dL (8.6-10.3); Chloride 101 mmol/L (101-111); Creatine Kinase 278 U/L (10-223); Globulin 2.6 g/dL (2-4); Glucose 97 mg/dL (70-100); Magnesium 1.9 mg/dL (1.9-2.7); Potassium 3.5 mmol/L (3.5-5.0); Sodium 139 mmol/L (135-145); Total Protein 7.3 g/dL (6.4-8.9); eGFR CKD-EPI 101.8 (>60)
[2021-08-08 18:15] LABS: Urine Appearance Clear; Urine Bilirubin Negative (Negative); Urine Blood Negative (Negative); Urine Color Straw; Urine Glucose Negative (Negative); Urine Ketones Negative (Negative); Urine Nitrite Negative (Negative); Urine Protein Negative (Negative); Urine Specific Gravity 1.003 (1.002-1.030); Urine Urobilinogen Negative (Negative)
[2021-08-08] MEDS ORDERED: Adenosine 3 MG/ML 2 ml VIAL (6 mg) IV PUSH ONE ×2 (18:31→18:51)
[2021-08-08 19:45] LABS: High Sensitivity Troponin 1 Hr 6 pg/mL (<20)
[2021-08-08] MEDS ORDERED: Diltiazem (ADVAN VIAL) 100 MG/100 ML ADDV.BAG IV SCH ×2 (20:00→21:29)
[2021-08-08 20:21] LABS: TSH Ultra Thyroid Stim Horm 2.88 mcIU/mL (0.34-5.60)
[2021-08-08 20:23] LABS: Free T4 0.95 ng/dL (0.61-1.12)
[2021-08-08] MEDS ORDERED: Ondansetron ODT 4 mg TAB 4 MG TAB SL PRN (20:26)
[2021-08-08] MEDS ORDERED: Magnesium Sulfate 2 gm BAG 2 GM/50 ML BAG IVPB ONE (20:37)
[2021-08-08] MEDS ORDERED: Enoxaparin 40 MG/0.4 ML SYR SUBCUT SCH (21:00)
[2021-08-08] MEDS: Potassium Chloride LIQUID 20 MEQ/15 ML LIQUID PO SCH (21:41)
[2021-08-08] MEDS: PERPHENAZINE 8 MG PO SCH (21:46)
[2021-08-08] MEDS: CMCS:Lamotrigine XR 200 mg TAB (NF) PO SCH (21:46)
[2021-08-08] MEDS ORDERED: Lactated Ringers 500 ml BAG 500 ML IV ONE (23:17)
[2021-08-09] MEDS: Enoxaparin 80 MG/0.8 ML SYR SUBCUT SCH ×3 (00:44→21:35)
[2021-08-09] MEDS: Potassium Chloride LIQUID 20 MEQ/15 ML LIQUID PO SCH (00:49)
[2021-08-09] MEDS ORDERED: Diltiazem IV push/loading dose 5 MG/ML 5 ML vial (25 mg) IV SLOW PU ONE ×5 (01:28→21:58)
[2021-08-09] MEDS ORDERED: Diltiazem (ADVAN VIAL) 100 MG/100 ML ADDV.BAG IV SCH (02:00)
[2021-08-09] MEDS ORDERED: Lactated Ringers 500 ml BAG 500 ML IV ONE (03:25)
[2021-08-09 07:17] LABS: ABS Eosinophils 0.2 10^3/ul (0-0.6); ABS Monocytes 0.5 10^3/ul (0-0.8); ABS Neutrophils 2.1 10^3/ul (1.5-7.7); Eosinophil % 4.7 %; Hematocrit 32 % (42-52); Hemoglobin 10.8 g/dL (14.0-18.0); Lymphocyte % 27.6 %; Mean Corpuscular HGB Conc 34 g/dL (31-36); Mean Corpuscular Hemoglobin 31 pg (27-31); Mean Corpuscular Volume 91 fL (80-94); Mean Platelet Volume 8.5 fL (7.4-10.4); Nucleated Red Blood Cells % 0.1; Platelet Count 178 10^3/uL (150-450); Red Blood Count 3.49 10^6 /uL (4.18-5.48); Red Cell Distribution Width 14 % (10-15); White Blood Count 3.8 10^3/uL (3.5-10.8)
[2021-08-09 07:21] LABS: INR 1.21 (0.86-1.15)
[2021-08-09 07:49] LABS: Potassium 4.2 mmol/L (3.5-5.0)
[2021-08-09 07:50] LABS: Calcium 8.4 mg/dL (8.6-10.3); eGFR CKD-EPI 106.6 (>60)
[2021-08-09 07:52] LABS: CKMB ng/mL 1.9 ng/mL (0.6-6.3)
[2021-08-09] MEDS ORDERED: Metoprolol Tartrate 5 mg VIAL 5 ml VIAL (1 mg/ml) IV ONE (08:03)
[2021-08-09 08:08] LABS: Ferritin 9.2 ng/mL (24-336)
[2021-08-09] MEDS: Multivitamins/Minerals TAB PO SCH (09:55)
[2021-08-09] MEDS: Nystatin TOP POWDER 15 GM BTL TOPICAL SCH (10:00)
[2021-08-09] MEDS: PERPHENAZINE 8 MG PO SCH ×2 (11:29→20:09)
[2021-08-09] MEDS ORDERED: Iron Sucrose 200 MG in NS 0.9% 100 ml BAG 100 ML IVPB ONE (14:06)
[2021-08-09 14:55] LABS: Folate 19.43 ng/mL (5.90-24.80)
[2021-08-09] MEDS: CMCS:Lamotrigine XR 200 mg TAB (NF) PO SCH (21:35)
[2021-08-09 22:23] LABS: Urine Benzodiazepine Screen None Detected (None Detect); Urine Cannabinoids Screen None Detected (None Detect); Urine Opiates Screen None Detected (None Detect)
[2021-08-10 05:56] LABS: Hematocrit 36 % (42-52); Hemoglobin 12.2 g/dL (14.0-18.0); Mean Corpuscular HGB Conc 34 g/dL (31-36); Mean Corpuscular Hemoglobin 31 pg (27-31); Mean Corpuscular Volume 91 fL (80-94); Mean Platelet Volume 8.2 fL (7.4-10.4); Platelet Count 205 10^3/uL (150-450); Red Blood Count 3.98 10^6 /uL (4.18-5.48); Red Cell Distribution Width 14 % (10-15); White Blood Count 4.7 10^3/uL (3.5-10.8)
[2021-08-10 06:12] LABS: Calcium 9.1 mg/dL (8.6-10.3); Magnesium 2.2 mg/dL (1.9-2.7); Potassium 4.9 mmol/L (3.5-5.0); eGFR CKD-EPI 101.4 (>60)
[2021-08-10] MEDS: Enoxaparin 80 MG/0.8 ML SYR SUBCUT SCH ×2 (08:21→20:54)
[2021-08-10] MEDS: Multivitamins/Minerals TAB PO SCH (08:21)
[2021-08-10] MEDS: PERPHENAZINE 8 MG PO SCH ×2 (09:31→20:54)
[2021-08-10] MEDS: Nystatin TOP POWDER 15 GM BTL TOPICAL SCH (09:32)
[2021-08-10] MEDS: CMCS:Lamotrigine XR 200 mg TAB (NF) PO SCH (20:55)
[2021-08-11 06:49] LABS: Hematocrit 36 % (42-52); Mean Corpuscular HGB Conc 33 g/dL (31-36); Mean Corpuscular Hemoglobin 30 pg (27-31); Mean Corpuscular Volume 90 fL (80-94); Mean Platelet Volume 8.5 fL (7.4-10.4); Platelet Count 203 10^3/uL (150-450); Red Blood Count 3.98 10^6 /uL (4.18-5.48); Red Cell Distribution Width 14 % (10-15)
[2021-08-11 07:01] LABS: Calcium 8.9 mg/dL (8.6-10.3); Potassium 4.2 mmol/L (3.5-5.0); eGFR CKD-EPI 101.4 (>60)
[2021-08-11] MEDS: Multivitamins/Minerals TAB PO SCH (07:35)
[2021-08-11] MEDS: PERPHENAZINE 8 MG PO SCH ×2 (07:36→20:45)
[2021-08-11] MEDS: Nystatin TOP POWDER 15 GM BTL TOPICAL SCH (07:40)
[2021-08-11] MEDS: Enoxaparin 80 MG/0.8 ML SYR SUBCUT SCH ×2 (11:07→20:39)
[2021-08-11] MEDS: CMCS:Lamotrigine XR 200 mg TAB (NF) PO SCH (20:39)
[2021-08-12 06:34] LABS: Calcium 9.2 mg/dL (8.6-10.3); Potassium 4.7 mmol/L (3.5-5.0); eGFR CKD-EPI 104.6 (>60)
[2021-08-12] MEDS: Multivitamins/Minerals TAB PO SCH (09:44)
[2021-08-12] MEDS: Nystatin TOP POWDER 15 GM BTL TOPICAL SCH (09:46)
[2021-08-12] MEDS: PERPHENAZINE 8 MG PO SCH ×2 (09:49→20:32)
[2021-08-12] MEDS: Enoxaparin 80 MG/0.8 ML SYR SUBCUT SCH ×2 (09:50→22:20)
[2021-08-12] MEDS ORDERED: Metoprolol Tartrate 5 mg VIAL 5 ml VIAL (1 mg/ml) IV PRN (17:35)
[2021-08-12] MEDS: CMCS:Lamotrigine XR 200 mg TAB (NF) PO SCH (20:32)
[2021-08-13 05:45] LABS: ABS Eosinophils 0.3 10^3/ul (0-0.6); ABS Lymphocytes 1.4 10^3/ul (1.0-4.8); ABS Monocytes 0.8 10^3/ul (0-0.8); ABS Neutrophils 3.2 10^3/ul (1.5-7.7); Eosinophil % 4.6 %; Hematocrit 38 % (42-52); Hemoglobin 12.9 g/dL (14.0-18.0); Lymphocyte % 24.2 %; Mean Corpuscular HGB Conc 34 g/dL (31-36); Mean Corpuscular Hemoglobin 30 pg (27-31); Mean Corpuscular Volume 90 fL (80-94); Nucleated Red Blood Cells % 0.1; Platelet Count 224 10^3/uL (150-450); Red Blood Count 4.23 10^6 /uL (4.18-5.48); Red Cell Distribution Width 14 % (10-15); White Blood Count 5.6 10^3/uL (3.5-10.8)
[2021-08-13 06:16] LABS: Potassium 4.7 mmol/L (3.5-5.0)
[2021-08-13 06:21] LABS: Digoxin 1.9 ng/ml (0.8-2.0); eGFR CKD-EPI 102.7 (>60)
[2021-08-13] MEDS: Enoxaparin 80 MG/0.8 ML SYR SUBCUT SCH (11:06)
[2021-08-13] MEDS: PERPHENAZINE 8 MG PO SCH (11:07)
[2021-08-13] MEDS: Nystatin TOP POWDER 15 GM BTL TOPICAL SCH (11:07)
[2021-08-13] MEDS: Multivitamins/Minerals TAB PO SCH (11:11)
[2021-08-13 15:08] VITALS: BP 109/54
== END 2021-08-13 17:15 | disposition home or self-care (01) | DRG 201 ==
LOC: ED 16:31 → EDHOLD 20:34 → SUATTDRO 20:34 → MEDTELE 23:46
PROVIDERS: ADMIT Internal Medicine; ATTEND Internal Medicine

== ENCOUNTER 2022-12-15 00:15 | Observation (INO) ==
[2022-12-15] MEDS ORDERED: NS 0.9% 1000 ml BAG 1,000 ML IV ONE (00:47)
[2022-12-15] MEDS ORDERED: fentaNYL 100 mcg/2 ml 50 MCG/ML VIAL IV ONE (00:47)
[2022-12-15 00:50] LABS: ABS Eosinophils 0.1 10^3/uL (0.0-0.5); ABS Monocytes 0.7 10^3/uL (0.0-1.1); ABS Neutrophils 5.7 10^3/uL (1.5-7.6); ABS Nucleated RBC 0.01 10^3/ul; Eosinophil % 1.5 %; Hematocrit 34.3 % (38-53); Hemoglobin 11.7 g/dL (13.2-16.3); Lymphocyte % 12.8 %; Mean Corpuscular Hemoglobin 28.8 pg (27-33); Mean Corpuscular Hgb Conc 34.1 g/dL (31-36); Mean Corpuscular Volume 84.3 fL (80-97); Mean Platelet Volume 7.9 fL (7.5-11.2); Nucleated Red Blood Cells % 0.1 /100 WBC (0.0-0.4); Platelet Count 259 10^3/uL (150-450); Red Blood Count 4.08 10^6/uL (4.06-5.63); Red Cell Distribution Width 14.4 % (12-17); White Blood Count 7.5 10^3/uL (3.6-10.2)
[2022-12-15 01:00] LABS: ALT 17 U/L (7-52); AST 25 U/L (13-39); Albumin 4.4 g/dL (3.2-5.2); Albumin/Globulin Ratio 1.4 (1-3); Alkaline Phosphatase 84 U/L (35-149); Anion Gap 11 mmol/L (2-16); Blood Urea Nitrogen 9 mg/dL (6-24); C Reactive Protein < 1.00 mg/L (<8.01); CO2 Carbon Dioxide 31 mmol/L (22-32); Calcium 9.2 mg/dL (8.6-10.3); Chloride 92 mmol/L (101-111); Creatinine, Serum 0.83 mg/dL (0.67-1.17); Globulin 3.2 g/dL (2-4); Glucose 119 mg/dL (70-100); Lipase 80 U/L (11.0-82.0); Potassium 3.3 mmol/L (3.5-5.0); Sodium 134 mmol/L (135-145); Total Protein 7.6 g/dL (6.4-8.9); eGFR CKD-EPI 96.5 (>60)
[2022-12-15] MEDS ORDERED: Iohexol 300 (CONTRAST) 10 ML SDV IV ONE (01:44)
[2022-12-15 02:36] LABS: Urine Appearance Clear; Urine Bilirubin Negative (Negative); Urine Blood Negative (Negative); Urine Color Straw; Urine Glucose Negative (Negative); Urine Ketones Negative (Negative); Urine Nitrite Negative (Negative); Urine Protein Negative (Negative); Urine Specific Gravity 1.002 (1.002-1.030); Urine Urobilinogen Negative (Negative)
[2022-12-15] MEDS ORDERED: Ondansetron 4 mg VIAL 2 MG/ML 2 ml VIAL IV PRN (04:11)
[2022-12-15] MEDS ORDERED: NS 0.9% 1000 ml BAG 1,000 ML IV SCH (04:30)
[2022-12-15] MEDS: KCL 20 MEQ/100 ML IVPREMIX 20 MEQ/100 ML BAG IV SCH ×2 (04:36→09:14)
[2022-12-15 05:01] LABS: ABS Eosinophils 0.1 10^3/uL (0.0-0.5); ABS Lymphocytes 1.3 10^3/uL (1.0-4.8); ABS Monocytes 0.7 10^3/uL (0.0-1.1); ABS Neutrophils 4.5 10^3/uL (1.5-7.6); Eosinophil % 1.3 %; Hematocrit 31.2 % (38-53); Hemoglobin 10.8 g/dL (13.2-16.3); Lymphocyte % 19.2 %; Mean Corpuscular Hemoglobin 29.2 pg (27-33); Mean Corpuscular Hgb Conc 34.6 g/dL (31-36); Mean Corpuscular Volume 84.3 fL (80-97); Mean Platelet Volume 7.5 fL (7.5-11.2); Platelet Count 216 10^3/uL (150-450); Red Cell Distribution Width 14.1 % (12-17); White Blood Count 6.5 10^3/uL (3.6-10.2)
[2022-12-15 05:16] LABS: Albumin/Globulin Ratio 1.5 (1-3); Creatinine, Serum 0.71 mg/dL (0.67-1.17); Globulin 2.7 g/dL (2-4); Potassium 3.4 mmol/L (3.5-5.0); Total Bilirubin 0.3 mg/dL (0.2-1.0); Total Protein 6.7 g/dL (6.4-8.9); eGFR CKD-EPI 101.2 (>60)
[2022-12-15] MEDS ORDERED: Enoxaparin 40 MG/0.4 ML SYR SUBCUT SCH (06:00)
[2022-12-15] MEDS ORDERED: Acetaminophen IV 1 GM/100ML 1,000 MG/100 ML BAG IV PRN (06:04)
[2022-12-15] MEDS ORDERED: OLANZapine IM (NF) 10 MG VIAL IM ONE (06:11)
[2022-12-15] MEDS ORDERED: LORazepam 2 mg VIAL 1 ml IV PUSH PRN (06:31)
[2022-12-15] MEDS ORDERED: Lorazepam PYXIS KEY PRN (06:31)
[2022-12-15] MEDS ORDERED: Enoxaparin 80 MG/0.8 ML SYR SUBCUT SCH ×2 (07:00→10:00)
[2022-12-15] MEDS ORDERED: Levothyroxine 100 MCG/5 ML VIAL IV SCH (07:00)
[2022-12-15 07:36] LABS: Magnesium 1.9 mg/dL (1.9-2.7)
[2022-12-15] MEDS ORDERED: Nystatin TOP POWDER 15 GM BTL TOPICAL SCH (09:00)
[2022-12-15] MEDS ORDERED: Pantoprazole VIAL 40 MG VIAL IV SCH (09:00)
[2022-12-15] MEDS ORDERED: Potassium Chloride LIQUID 20 MEQ/15 ML LIQUID PO ONE (09:05)
[2022-12-15] MEDS ORDERED: Perphenazine 8 mg TAB (NF) PO SCH (10:00)
[2022-12-15 13:46] VITALS: BP 101/57
[2022-12-15] MEDS ORDERED: PERPHENAZINE 8 MG PO SCH (21:00)
[2022-12-16] MEDS ORDERED: Levothyroxine 100 MCG/5 ML VIAL IV SCH (06:00)
== END 2022-12-15 17:30 | disposition home or self-care (01) ==
LOC: ED 00:15 → SUATTDRO 04:11 → INTOOBSV 04:11 → EDHOLD 04:11 → MED 05:21
PROVIDERS: ADMIT Internal Medicine; ATTEND Internal Medicine